=== PATIENT | male | born 1995 | race American Indian/Alaskan Native ===

== ENCOUNTER 2016-08-25 09:02 | Emergency (ER) | payer BC ==
[2016-08-25 09:18] VITALS: BP 124/79
--- NOTE | 2016-08-25 10:37 | Emergency Department Report ---
ED Male HPI - General Chief complaint: Urogenital-Male Stated complaint: BURNING FROM PENIS Time Seen by Provider: 08/25/16 10:36 Source: patient Mode of arrival: Ambulatory Limitations: No Limitations - History of Present Illness Initial comments: Patient complaining of penile discharge and burning when urinating, relates last unprotected sex was 2 days ago. Patient also complains of swollen lump lower abdomen. Denies fever, chills, myalgias, rashes. MD Complaint: dysuria - Related Data Previous Rx's Medication Instructions Recorded Last Taken Type Brompheniramine/Pseudoephed/Dm 5 ml PO Q6H PRN #30 ml 03/16/15 Unknown Rx [Bromfed Dm Cough Syrup] Butalb/Acetaminophen/Caffeine 1 cap PO Q6HR PRN #14 cap 03/16/15 Unknown Rx [Fioricet 50-300-40 mg CAP] Cetirizine HCl [Allergy Relief] 10 mg PO DAILY #30 tablet 03/16/15 Unknown Rx Fluticasone [Flonase] 1 spray NS QDAY #1 bottle 03/16/15 Unknown Rx Butalb/Acetamin/Caff 50-325-40 1 tab PO Q6HR PRN #12 tab 05/10/15 Unknown Rx [Fioricet] Doxycycline [Vibramycin CAP] 100 mg PO Q12HR #28 capsule 12/03/15 Unknown Rx Doxycycline [Vibramycin CAP] 100 mg PO Q12HR #20 capsule 08/25/16 Unknown Rx Allergies Allergy/AdvReac Type Severity Reaction Status Date / Time No Known Allergies Allergy Verified 12/03/15 18:33 ED Review of Systems ROS: Stated complaint: BURNING FROM PENIS Other details as noted in HPI Constitutional: denies: chills, fever Eyes: denies: eye pain, eye discharge, vision change ENT: denies: ear pain, throat pain Respiratory: denies: cough, shortness of breath, wheezing Cardiovascular: denies: chest pain, palpitations Endocrine: no symptoms reported Gastrointestinal: denies: abdominal pain, nausea, diarrhea Genitourinary: dysuria, discharge. denies: urgency, testicular pain, testicular mass Musculoskeletal: denies: back pain, joint swelling, arthralgia Skin: denies: rash, lesions Neurological: denies: headache, weakness, paresthesias Psychiatric: denies: anxiety, depression Hematological/Lymphatic: swollen glands. denies: easy bleeding, easy bruising ED Past Medical Hx - Past Medical History Previous Medical History?: No Additional medical history: allergies - Surgical History Past Surgical History?: No - Social History Smoking Status: Current Some Day Smoker Substance Use Type: None - Medications Home Medications: Home Medications Medication Instructions Recorded Confirmed Last Taken Type Brompheniramine/Pseudoephed/Dm 5 ml PO Q6H PRN #30 ml 03/16/15 Unknown Rx [Bromfed Dm Cough Syrup] Butalb/Acetaminophen/Caffeine 1 cap PO Q6HR PRN #14 cap 03/16/15 Unknown Rx [Fioricet 50-300-40 mg CAP] Cetirizine HCl [Allergy Relief] 10 mg PO DAILY #30 tablet 03/16/15 Unknown Rx Fluticasone [Flonase] 1 spray NS QDAY #1 bottle 03/16/15 Unknown Rx Butalb/Acetamin/Caff 50-325-40 1 tab PO Q6HR PRN #12 tab 05/10/15 Unknown Rx [Fioricet] Doxycycline [Vibramycin CAP] 100 mg PO Q12HR #28 capsule 12/03/15 Unknown Rx Doxycycline [Vibramycin CAP] 100 mg PO Q12HR #20 capsule 08/25/16 Unknown Rx ED Physical Exam - General Limitations: No Limitations General appearance: alert, in no apparent distress - Head Head exam: Present: atraumatic, normocephalic - Eye Eye exam: Present: normal appearance, PERRL, EOMI Pupils: Present: normal accommodation - ENT ENT exam: Present: normal exam, mucous membranes moist - Neck Neck exam: Present: normal inspection - Respiratory Respiratory exam: Present: normal lung sounds bilaterally. Absent: respiratory distress, wheezes, rales, rhonchi, stridor - Cardiovascular Cardiovascular Exam: Present: regular rate. Absent: systolic murmur, diastolic murmur, rubs, gallop - GI/Abdominal GI/Abdominal exam: Present: soft, normal bowel sounds. Absent: distended, tenderness, guarding, rebound, rigid - Rectal Rectal exam: Present: deferred - exam: Present: normal inspection, circumcision. Absent: testicular tenderness, urethral discharge, scrotal swelling, vertical testicular lie External exam: Present: normal external exam, other (right inguinal adenopathy) . Absent: erythema, swelling, lesions, lacerations, ecchymosis, bleeding - Extremities Exam Extremities exam: Present: normal inspection, full ROM. Absent: normal capillary refill, pedal edema - Back Exam Back exam: Present: normal inspection - Neurological Exam Neurological exam: Present: alert, oriented X3 - Psychiatric Psychiatric exam: Present: normal affect, normal mood - Skin Skin exam: Present: warm, dry, intact, normal color. Absent: rash ED Course Vital Signs 08/25/16 09:15 Temperature 98.2 F Pulse Rate 78 Respiratory 16 Rate Blood Pressure 124/79 O2 Sat by Pulse 100 Oximetry - Reevaluation(s) Reevaluation #1: 08/25/16 11:16 Patient denies that I am going to treat for GC, and that we are will test here for GC. Patient advised she needs to go to health department for other STD testing. Patient acknowledged this verbally. Critical care attestation.: If time is entered above; I have spent that time in minutes in the direct care of this critically ill patient, excluding procedure time. ED Disposition Clinical Impression: Dysuria, STD (sexually transmitted disease) Disposition: DISCHARGED TO HOME OR SELFCARE Is pt being admited?: No Condition: Stable Instructions: Sexually Transmitted Diseases (ED), Safe Sex (ED) Prescriptions: Doxycycline [Vibramycin CAP] 100 mg PO Q12HR #20 capsule Referrals: PRIMARY CARE,MD [Primary Care Provider] - 3-5 Days
[2016-08-25] MEDS ORDERED: ROCEPHIN IM ONE (10:58)
[2016-08-25] MEDS ORDERED: ZITHROMAX PO ONE (10:58)
[2016-08-25] MEDS ORDERED: XYLOCAINE 1% MPF 5 mL INFILTRATI ONE (10:58)
[2016-08-25 11:25] LABS: Bacteria,Urine 1+ /HPF (Negative); Bilirubin,Urine NEG (Negative); Blood,Urine NEG (Negative); Ketones,Urine TR mg/dL (Negative); Leukocyte Esterase,Urine MOD (Negative); Mucus,Urine 3+ /HPF; Nitrite,Urine NEG (Negative)
== END 2016-08-25 11:52 | disposition home or self-care (01) ==
LOC: ED 09:02
DX: A64 Unspecified sexually transmitted disease (principal); R30.0 Dysuria; F17.200 Nicotine dependence, unspecified, uncomplicated
CPT/HCPCS: 81001; 87591; 96372; 99283; J0696

== ENCOUNTER 2016-09-08 09:55 | Emergency (ER) | payer BC ==
[2016-09-08 10:28] VITALS: BP 119/79
[2016-09-08 11:14] LABS: Bilirubin,Urine NEG (Negative); Blood,Urine NEG (Negative); Ketones,Urine NEG (Negative); Leukocyte Esterase,Urine SM (Negative); Mucus,Urine 1+ /HPF; Nitrite,Urine NEG (Negative); Protein,Urine <15 mg/dL mg/dL (Negative); Urobilinogen,Urine < 2.0 mg/dL (<2.0)
--- NOTE | 2016-09-08 12:12 | Emergency Department Report ---
ED Male HPI - General Chief complaint: Urogenital-Male Stated complaint: BURNING WHEN URINATING Time Seen by Provider: 09/08/16 12:08 Source: patient Mode of arrival: Ambulatory Limitations: No Limitations - History of Present Illness Initial comments: Patient reports painful urination and a small knot on his right groin area. Denies concerns for STD. Denies nausea , vomiting and diarrhea. Denies abdominal or back pain. Was treated 08/25/2016 for CHL and given doxycycline prescription for Bacteria in urine. He said his son poured out medicine so he did not get to finish. Not a right groin is not painful. He said burning on urination and denies any penile discharge. Denies any scrotal or testicular pain. Denies any fever or chills. MD Complaint: dysuria, other (Knot right groin) Onset/Timin -: week(s) Location: right inguinal region Radiation: none Severity scale (0 -10): 0 dysuria, other (knot to rt groin). denies: discharge, swelling, mass, rash, urinary retention, blood in urine, fever, nausea/vomiting, incontinence - Related Data Sexually active: Yes Previous Rx's Medication Instructions Recorded Last Taken Type Brompheniramine/Pseudoephed/Dm 5 ml PO Q6H PRN #30 ml 03/16/15 Unknown Rx [Bromfed Dm Cough Syrup] Butalb/Acetaminophen/Caffeine 1 cap PO Q6HR PRN #14 cap 03/16/15 Unknown Rx [Fioricet 50-300-40 mg CAP] Cetirizine HCl [Allergy Relief] 10 mg PO DAILY #30 tablet 03/16/15 Unknown Rx Fluticasone [Flonase] 1 spray NS QDAY #1 bottle 03/16/15 Unknown Rx Butalb/Acetamin/Caff 50-325-40 1 tab PO Q6HR PRN #12 tab 05/10/15 Unknown Rx [Fioricet] Doxycycline [Vibramycin CAP] 100 mg PO Q12HR #28 capsule 12/03/15 Unknown Rx Doxycycline [Vibramycin CAP] 100 mg PO Q12HR #20 capsule 08/25/16 Unknown Rx Ciprofloxacin HCl [Ciprofloxacin 500 mg PO Q12H #10 tab 09/08/16 Unknown Rx TAB] Allergies Allergy/AdvReac Type Severity Reaction Status Date / Time No Known Allergies Allergy Verified 12/03/15 18:33 ED Review of Systems ROS: Stated complaint: BURNING WHEN URINATING Other details as noted in HPI Comment: All other systems reviewed and negative Constitutional: denies: chills, fever Eyes: denies: eye pain, eye discharge Respiratory: no symptoms reported Cardiovascular: denies: chest pain, palpitations, edema, syncope Gastrointestinal: denies: abdominal pain, nausea, vomiting Genitourinary: dysuria, other (rt groin knot). denies: urgency, frequency, hematuria, discharge, testicular pain, testicular mass Musculoskeletal: denies: back pain, arthralgia, myalgia Skin: denies: rash Neurological: denies: headache, weakness, numbness, paresthesias, confusion ED Past Medical Hx - Past Medical History Previous Medical History?: No Additional medical history: allergies - Surgical History Past Surgical History?: No - Family History Family history: no significant - Social History Smoking Status: Never Smoker Substance Use Type: Alcohol - Medications Home Medications: Home Medications Medication Instructions Recorded Confirmed Last Taken Type Brompheniramine/Pseudoephed/Dm 5 ml PO Q6H PRN #30 ml 03/16/15 Unknown Rx [Bromfed Dm Cough Syrup] Butalb/Acetaminophen/Caffeine 1 cap PO Q6HR PRN #14 cap 03/16/15 Unknown Rx [Fioricet 50-300-40 mg CAP] Cetirizine HCl [Allergy Relief] 10 mg PO DAILY #30 tablet 03/16/15 Unknown Rx Fluticasone [Flonase] 1 spray NS QDAY #1 bottle 03/16/15 Unknown Rx Butalb/Acetamin/Caff 50-325-40 1 tab PO Q6HR PRN #12 tab 05/10/15 Unknown Rx [Fioricet] Doxycycline [Vibramycin CAP] 100 mg PO Q12HR #28 capsule 12/03/15 Unknown Rx Doxycycline [Vibramycin CAP] 100 mg PO Q12HR #20 capsule 08/25/16 Unknown Rx Ciprofloxacin HCl [Ciprofloxacin 500 mg PO Q12H #10 tab 09/08/16 Unknown Rx TAB] ED Physical Exam - General Limitations: No Limitations General appearance: alert, in no apparent distress - Head Head exam: Present: atraumatic, normocephalic, normal inspection - Eye Eye exam: Present: normal appearance, PERRL, EOMI. Absent: scleral icterus, conjunctival injection Pupils: Present: normal accommodation - ENT ENT exam: Present: normal exam, normal orophraynx - Neck Neck exam: Present: normal inspection, full ROM. Absent: tenderness, meningismus, lymphadenopathy - Respiratory Respiratory exam: Present: normal lung sounds bilaterally. Absent: respiratory distress, chest wall tenderness - Cardiovascular Cardiovascular Exam: Present: normal rhythm, bradycardia (asymptomatic), normal heart sounds - GI/Abdominal GI/Abdominal exam: Present: soft, normal bowel sounds. Absent: distended, tenderness, guarding, rebound, rigid, organomegaly, mass, bruit, hernia - exam: Present: normal inspection. Absent: testicular tenderness, urethral discharge, scrotal swelling External exam: Present: normal external exam, other (positive injury to the area. Inguinal area without any tenderness to palpation.visible). Absent: erythema, swelling, lesions, lacerations, ecchymosis, bleeding - Extremities Exam Extremities exam: Present: normal inspection, full ROM, normal capillary refill. Absent: tenderness, pedal edema, joint swelling, calf tenderness - Back Exam Back exam: Present: normal inspection, full ROM. Absent: tenderness, CVA tenderness (R), CVA tenderness (L), muscle spasm, paraspinal tenderness, vertebral tenderness, rash noted - Neurological Exam Neurological exam: Present: alert, oriented X3, normal gait - Psychiatric Psychiatric exam: Present: normal affect, normal mood - Skin Skin exam: Present: warm, dry, intact, normal color. Absent: rash ED Course Vital Signs 09/08/16 10:26 Temperature 98.7 F Pulse Rate 59 L Respiratory 16 Rate Blood Pressure 119/79 O2 Sat by Pulse 100 Oximetry - Reevaluation(s) Reevaluation #1: 09/08/16 12:47 Patient given Rocephin 1 g IM in emergency room to cover her UTI. He is in ultrasound right groin. ED Medical Decision Making - Lab Data Lab Results 09/08/16 Range/Units Unknown Urine Color Yellow (Yellow) Urine Turbidity Clear (Clear) Urine pH 6.0 (5.0-7.0) Ur Specific [place] 1.023 (1.003-1.030) Urine Protein <15 mg/dl (Negative) mg/dL Urine Glucose (UA) Neg (Negative) mg/dL Urine Ketones Neg (Negative) mg/dL Urine Blood Neg (Negative) Urine Nitrite Neg (Negative) Urine Bilirubin Neg (Negative) Urine Urobilinogen < 2.0 (<2.0) mg/dL Ur Leukocyte Esterase Sm (Negative) Urine WBC (Auto) 8.0 H (0.0-6.0) /HPF Urine RBC (Auto) 2.0 (0.0-6.0) /HPF Urine Mucus 1+ /HPF Urine culture pending - Radiology Data Radiology results: report reviewed Ultrasound of right groin reveal patient with multiple to the right groin. - Medical Decision Making ED course: I informed The patient that he had bacteria in his urine, UTI and Adenitis. He was just treated for STD on 08/25/2016 and he does not have any penile discharge and not concerned for STD at present. I also discussed with him that this ultrasound shows that he has lymph nodes in his right groin. I discussed treatment plan and diagnosis patient is understanding and primary care physician and I referred him to [facility] . I discussed with him that he should call [facility] to have repeat STD testing done as he was treated on August 25, 2016 for gonorrhea and chlamydia. Patient was understanding discharged home with prescription for ciprofloxacin. He was given Rocephin 1 g IM in the emergency room to cover her UTI and cultures are pending. Critical care attestation.: If time is entered above; I have spent that time in minutes in the direct care of this critically ill patient, excluding procedure time. ED Disposition Clinical Impression: Dysuria, Acute cystitis without hematuria, Adenitis, acute Disposition: DC-01 TO HOME OR SELFCARE Is pt being admited?: No Does the pt Need Aspirin: No Condition: Stable Instructions: Adenitis (ED), Dysuria (ED), Urinary Tract Infection in Men (ED) Additional Instructions: Please practice safe sex Neck antibiotic as prescribed Follow-up with outside [facility] for primary care visit and to have repeat STD testing done this evening treated within the last 2 weeks for STD. Prescriptions: Ciprofloxacin HCl [Ciprofloxacin TAB] 500 mg PO Q12H #10 tab Referrals: [facility] [Outside] - 09/09/16 Forms: Work/School Release Form(ED)
[2016-09-08] MEDS ORDERED: ROCEPHIN IM STA (12:22)
[2016-09-08] MEDS ORDERED: XYLOCAINE 1% MPF 5 mL INFILTRATI ONE (12:22)
--- NOTE | 2016-09-08 13:04 | Ultrasound Report ---
ULTRASOUND EXTREMITY NONVASCULAR LIMITED RIGHT HISTORY: Right groin mass. FINDINGS: Targeted grayscale ultrasound was performed in the right groin at the site of the palpable mass. The images demonstrate multiple mildly enlarged lymph nodes in this area. The largest lymph node measures 2.9 x 0.9 x 2.5 cm. This lymph node demonstrates hyperemia on color Doppler interrogation. There is no evidence for necrotic lymph nodes or abscess. IMPRESSION: Probable right groin adenopathy. Consider adenitis. If further evaluation is needed, CT with contrast should provide additional information.
== END 2016-09-08 13:31 | disposition home or self-care (01) ==
LOC: ED 09:55
DX: N30.00 Acute cystitis without hematuria (principal); I88.9 Nonspecific lymphadenitis, unspecified
CPT/HCPCS: 76882; 81001; 87086; 96372; 99284; J0696

== ENCOUNTER 2016-12-08 10:08 | Emergency (ER) | payer BC ==
[2016-12-08 10:15] VITALS: BP 134/81
[2016-12-08 13:00] LABS: Bilirubin,Urine NEG (Negative); Blood,Urine NEG (Negative); Ketones,Urine NEG (Negative); Leukocyte Esterase,Urine NEG (Negative); Mucus,Urine 1+ /HPF; Nitrite,Urine NEG (Negative); Protein,Urine <15 mg/dL mg/dL (Negative); Urobilinogen,Urine < 2.0 mg/dL (<2.0)
--- NOTE | 2016-12-08 13:07 | Emergency Department Report ---
ED Male HPI - General Chief complaint: Urogenital-Male Stated complaint: KNOT ON PRIVATE AREA Time Seen by Provider: 12/08/16 12:35 Source: patient Mode of arrival: Ambulatory Limitations: No Limitations - History of Present Illness Initial comments: This is a 21-year-old male nontoxic, well nourished in appearance, no acute signs of distress presents to the ED complaining of right inguinal lymph node enlargement and penile ulcers 2 weeks. Patient stated 3 months ago he was diagnosed with coronary Chlamydia and have received appropriate treatment as well as urinary urinary tract infection. Based in the past 2 months he has not had any sexual intercourse and is not concerned about gonorrhea chlamydia or any other STD. Patient denies having right groin pain and just stated is just enlarged. Patient denies any penile discharge, testicular pain, testicular swelling, fever, chills, nausea, dysuria, polyuria, back pain, vomiting, chest pain or shortness of breath, abdominal pain. Patient denies any allergies or past medical history. MD Complaint: other (right inguinal lymph node enlargement and penile ulcer) -: Gradual, week(s) (2) Location: penis Radiation: none Severity: mild Severity scale (0 -10): 5 Quality: burning Consistency: constant Improves with: none Worsens with: none denies other symptoms, swelling (right inguinal lymph node). denies: discharge , mass, rash, urinary retention, blood in urine, dysuria, fever, nausea/vomiting , incontinence - Related Data Sexually active: No Previous Rx's Medication Instructions Recorded Last Taken Type Brompheniramine/Pseudoephed/Dm 5 ml PO Q6H PRN #30 ml 03/16/15 Unknown Rx [Bromfed Dm Cough Syrup] Butalb/Acetaminophen/Caffeine 1 cap PO Q6HR PRN #14 cap 03/16/15 Unknown Rx [Fioricet 50-300-40 mg CAP] Cetirizine HCl [Allergy Relief] 10 mg PO DAILY #30 tablet 03/16/15 Unknown Rx Fluticasone [Flonase] 1 spray NS QDAY #1 bottle 03/16/15 Unknown Rx Butalb/Acetamin/Caff 50-325-40 1 tab PO Q6HR PRN #12 tab 05/10/15 Unknown Rx [Fioricet] Doxycycline [Vibramycin CAP] 100 mg PO Q12HR #28 capsule 12/03/15 Unknown Rx Doxycycline [Vibramycin CAP] 100 mg PO Q12HR #20 capsule 08/25/16 Unknown Rx Ciprofloxacin HCl [Ciprofloxacin 500 mg PO Q12H #10 tab 09/08/16 Unknown Rx TAB] Acyclovir [Zovirax Cap] 200 mg PO 5XD 10 Days 12/08/16 Unknown Rx Allergies Allergy/AdvReac Type Severity Reaction Status Date / Time No Known Allergies Allergy Verified 12/03/15 18:33 ED Review of Systems ROS: Stated complaint: KNOT ON PRIVATE AREA Other details as noted in HPI Constitutional: denies: chills, fever Eyes: denies: eye pain, eye discharge, vision change ENT: denies: ear pain, throat pain Respiratory: denies: cough, shortness of breath, wheezing Cardiovascular: denies: chest pain, palpitations Endocrine: no symptoms reported Gastrointestinal: denies: abdominal pain, nausea, diarrhea Genitourinary: denies: urgency, dysuria Musculoskeletal: denies: back pain, joint swelling, arthralgia Skin: denies: rash, lesions Neurological: denies: headache, weakness, paresthesias Psychiatric: denies: anxiety, depression Hematological/Lymphatic: denies: easy bleeding, easy bruising ED Past Medical Hx - Past Medical History Previous Medical History?: No Additional medical history: allergies - Surgical History Past Surgical History?: No - Social History Smoking Status: Never Smoker Substance Use Type: None - Medications Home Medications: Home Medications Medication Instructions Recorded Confirmed Last Taken Type Brompheniramine/Pseudoephed/Dm 5 ml PO Q6H PRN #30 ml 03/16/15 Unknown Rx [Bromfed Dm Cough Syrup] Butalb/Acetaminophen/Caffeine 1 cap PO Q6HR PRN #14 cap 03/16/15 Unknown Rx [Fioricet 50-300-40 mg CAP] Cetirizine HCl [Allergy Relief] 10 mg PO DAILY #30 tablet 03/16/15 Unknown Rx Fluticasone [Flonase] 1 spray NS QDAY #1 bottle 03/16/15 Unknown Rx Butalb/Acetamin/Caff 50-325-40 1 tab PO Q6HR PRN #12 tab 05/10/15 Unknown Rx [Fioricet] Doxycycline [Vibramycin CAP] 100 mg PO Q12HR #28 capsule 12/03/15 Unknown Rx Doxycycline [Vibramycin CAP] 100 mg PO Q12HR #20 capsule 08/25/16 Unknown Rx Ciprofloxacin HCl [Ciprofloxacin 500 mg PO Q12H #10 tab 09/08/16 Unknown Rx TAB] Acyclovir [Zovirax Cap] 200 mg PO 5XD 10 Days 12/08/16 Unknown Rx ED Physical Exam - General Limitations: No Limitations General appearance: alert, in no apparent distress - Head Head exam: Present: atraumatic, normocephalic, normal inspection - Eye Eye exam: Present: normal appearance, PERRL, EOMI. Absent: scleral icterus, conjunctival injection, nystagmus, periorbital swelling, periorbital tenderness Pupils: Present: normal accommodation - ENT ENT exam: Present: normal exam, normal orophraynx, mucous membranes moist, TM's normal bilaterally, normal external ear exam - Neck Neck exam: Present: normal inspection, full ROM. Absent: tenderness, meningismus, lymphadenopathy, thyromegaly - Respiratory Respiratory exam: Present: normal lung sounds bilaterally. Absent: respiratory distress, wheezes, rales, rhonchi, stridor, chest wall tenderness, accessory muscle use, decreased breath sounds, prolonged expiratory - Cardiovascular Cardiovascular Exam: Present: regular rate, normal rhythm, normal heart sounds. Absent: bradycardia, tachycardia, irregular rhythm, systolic murmur, diastolic murmur, rubs, gallop - GI/Abdominal GI/Abdominal exam: Present: soft, normal bowel sounds. Absent: distended, tenderness, guarding, rebound, rigid, diminished bowel sounds - Rectal Rectal exam: Present: deferred - exam: Present: normal inspection. Absent: testicular tenderness, urethral discharge, scrotal swelling, vertical testicular lie, circumcision External exam: Present: normal external exam, other (right inguinal lymphadenopathy. Front tip of penile with ulcer and crusting. ). Absent: erythema, swelling, lesions, lacerations, ecchymosis, bleeding - Extremities Exam Extremities exam: Present: normal inspection, full ROM, normal capillary refill. Absent: tenderness, pedal edema, joint swelling, calf tenderness - Back Exam Back exam: Present: normal inspection, full ROM. Absent: tenderness, CVA tenderness (R), CVA tenderness (L), muscle spasm, paraspinal tenderness, vertebral tenderness, rash noted - Neurological Exam Neurological exam: Present: alert, oriented X3, CN II-XII intact, normal gait, reflexes normal - Psychiatric Psychiatric exam: Present: normal affect, normal mood - Skin Skin exam: Present: warm, dry, intact, normal color. Absent: rash ED Course Vital Signs 12/08/16 10:12 Temperature 98.1 F Pulse Rate 71 Respiratory 16 Rate Blood Pressure 134/81 O2 Sat by Pulse 100 Oximetry - Reevaluation(s) Reevaluation #1: 12/08/16 13:10 Patient is speaking in full sentences with no signs of distress noted. ED Medical Decision Making - Medical Decision Making This is a 21-year-old male that presents with gentle herpes. Patient was examined by myself and patient is stable. Patient denies any new sexual intercourse and that has not concerned about gonorrhea chlamydia. Upon examination there is a right inguinal lymph node enlargement associated with ulcerative penile tip. Patient did receive a ultrasound in September 2016 with a positive lymph node enlargement and no other abnormalities. Patient stated he was treated for gonorrhea chlamydia and was discharged with antibiotics as stated lymph node enlargement has went away and just reoccurred weeks ago. Patient denies any testicular pain or any abnormalities. Patient will be treated with Acyclovir. Patient was referred to follow up with primary care doctor in 3-5 days. At time time of discharge, the patient does not seem toxic or ill in appearance. No acute signs of distress noted. Patient agrees to discharge treatment plan of care. No further questions noted by the patient. Critical care attestation.: If time is entered above; I have spent that time in minutes in the direct care of this critically ill patient, excluding procedure time. ED Disposition Clinical Impression: Herpes, genital Qualifiers: Herpes simplex infection site: unspecified Qualified Code(s): A60.00 - Herpesviral infection of urogenital system, unspecified Disposition: DC-01 TO HOME OR SELFCARE Is pt being admited?: No Does the pt Need Aspirin: No Condition: Stable Instructions: Genital Herpes Simplex (ED), Acyclovir (By mouth) Additional Instructions: Follow-up with the primary care doctor 3-5 days or if symptoms worsen or continue results of emergency room as was possible. Prescriptions: Acyclovir [Zovirax Cap] 200 mg PO 5XD 10 Days Referrals: NAZ FLOOD MD [Primary Care Provider] - 3-5 Days ISHAAN DEL CID MD [Staff Physician] - 3-5 Days [facility] [Outside] - 3-5 Days [facility] [place] [Outside] - 3-5 Days Forms: Work/School Release Form(ED)
== END 2016-12-08 13:39 | disposition home or self-care (01) ==
LOC: ED 10:08
DX: A60.01 Herpesviral infection of penis (principal)
CPT/HCPCS: 81001; 99282

== ENCOUNTER 2017-01-18 11:17 | Emergency (ER) | payer BC ==
[2017-01-18 11:24] VITALS: BP 120/81
[2017-01-18] MEDS ORDERED: BICILLIN L-A IM ONE (15:57)
--- NOTE | 2017-01-18 16:02 | Emergency Department Report ---
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 MD Complaint: groin pain -: Gradual, days(s) Location: penis, right inguinal region Radiation: none Severity: mild Quality: aching Improves with: none Worsens with: none denies other symptoms - Related Data Previous Rx's Medication Instructions Recorded Last Taken Type Brompheniramine/Pseudoephed/Dm 5 ml PO Q6H PRN #30 ml 03/16/15 Unknown Rx [Bromfed Dm Cough Syrup] Butalb/Acetaminophen/Caffeine 1 cap PO Q6HR PRN #14 cap 03/16/15 Unknown Rx [Fioricet 50-300-40 mg CAP] Cetirizine HCl [Allergy Relief] 10 mg PO DAILY #30 tablet 03/16/15 Unknown Rx Fluticasone [Flonase] 1 spray NS QDAY #1 bottle 03/16/15 Unknown Rx Butalb/Acetamin/Caff 50-325-40 1 tab PO Q6HR PRN #12 tab 05/10/15 Unknown Rx [Fioricet] Doxycycline [Vibramycin CAP] 100 mg PO Q12HR #20 capsule 08/25/16 Unknown Rx Ciprofloxacin HCl [Ciprofloxacin 500 mg PO Q12H #10 tab 09/08/16 Unknown Rx TAB] Acyclovir [Zovirax Cap] 200 mg PO 5XD 10 Days 12/08/16 Unknown Rx Doxycycline [Vibramycin CAP] 100 mg PO Q12HR #28 capsule 01/18/17 Unknown Rx Allergies Allergy/AdvReac Type Severity Reaction Status Date / Time No Known Allergies Allergy Verified 12/03/15 18:33 ED Review of Systems ROS: Stated complaint: KNOT ON PRIVATE PART Other details as noted in HPI Comment: All other systems reviewed and negative Constitutional: denies: chills, fever Eyes: denies: eye pain, eye discharge, vision change ENT: denies: ear pain, throat pain Respiratory: denies: cough, shortness of breath, wheezing Cardiovascular: denies: chest pain, palpitations Endocrine: no symptoms reported Gastrointestinal: denies: abdominal pain, nausea, diarrhea Genitourinary: as per HPI. denies: urgency, dysuria Musculoskeletal: denies: back pain, joint swelling, arthralgia Skin: denies: rash, lesions Neurological: denies: headache, weakness, paresthesias Psychiatric: denies: anxiety, depression Hematological/Lymphatic: denies: easy bleeding, easy bruising ED Past Medical Hx - Past Medical History Previous Medical History?: Yes Additional medical history: seasonal allergies - Social History Smoking Status: Current Every Day Smoker Substance Use Type: Marijuana - Medications Home Medications: Home Medications Medication Instructions Recorded Confirmed Last Taken Type Brompheniramine/Pseudoephed/Dm 5 ml PO Q6H PRN #30 ml 03/16/15 Unknown Rx [Bromfed Dm Cough Syrup] Butalb/Acetaminophen/Caffeine 1 cap PO Q6HR PRN #14 cap 03/16/15 Unknown Rx [Fioricet 50-300-40 mg CAP] Cetirizine HCl [Allergy Relief] 10 mg PO DAILY #30 tablet 03/16/15 Unknown Rx Fluticasone [Flonase] 1 spray NS QDAY #1 bottle 03/16/15 Unknown Rx Butalb/Acetamin/Caff 50-325-40 1 tab PO Q6HR PRN #12 tab 05/10/15 Unknown Rx [Fioricet] Doxycycline [Vibramycin CAP] 100 mg PO Q12HR #20 capsule 08/25/16 Unknown Rx Ciprofloxacin HCl [Ciprofloxacin 500 mg PO Q12H #10 tab 09/08/16 Unknown Rx TAB] Acyclovir [Zovirax Cap] 200 mg PO 5XD 10 Days 12/08/16 Unknown Rx Doxycycline [Vibramycin CAP] 100 mg PO Q12HR #28 capsule 01/18/17 Unknown Rx ED Physical Exam - General Limitations: No Limitations General appearance: alert, in no apparent distress - Head Head exam: Present: atraumatic, normocephalic - Eye Eye exam: Present: normal appearance - ENT ENT exam: Present: mucous membranes moist - Neck Neck exam: Present: normal inspection - Respiratory Respiratory exam: Present: normal lung sounds bilaterally. Absent: respiratory distress - Cardiovascular Cardiovascular Exam: Present: regular rate, normal rhythm. Absent: systolic murmur, diastolic murmur, rubs, gallop - GI/Abdominal GI/Abdominal exam: Present: soft, normal bowel sounds - Rectal Rectal exam: Present: deferred - exam: Present: other (There is a 2.5 cm enlarged freely mobile lymph node to R inguinal area. There is a painless lesion to the distal shaft of the penis. ) . Absent: testicular tenderness, urethral discharge, scrotal swelling - Extremities Exam Extremities exam: Present: normal inspection - Back Exam Back exam: Present: normal inspection - Neurological Exam Neurological exam: Present: alert, oriented X3 - Psychiatric Psychiatric exam: Present: normal affect, normal mood - Skin Skin exam: Present: warm, dry, intact, normal color. Absent: rash ED Course Vital Signs 01/18/17 11:21 Temperature 98 F Pulse Rate 79 Respiratory 20 Rate Blood Pressure 120/81 O2 Sat by Pulse 99 Oximetry - Reevaluation(s) Reevaluation #1: 01/18/17 16:02 Pt is in NAD and stable for d/c. ED Medical Decision Making - Medical Decision Making Will order RPR and give PCN x 1. Will also cover with doxycycline. Advise close follow up with PCP or health department. - Differential Diagnosis syphilis, herpes Critical care attestation.: If time is entered above; I have spent that time in minutes in the direct care of this critically ill patient, excluding procedure time. ED Disposition Clinical Impression: Penile lesion, Lymphadenopathy Disposition: - TO HOME OR SELFCARE Is pt being admited?: No Condition: Good Instructions: Syphilis (ED), Lymphadenopathy (ED) Prescriptions: Doxycycline [Vibramycin CAP] 100 mg PO Q12HR #28 capsule Referrals: PRIMARY CAREMD [Primary Care Provider] - 3-5 Days JESSICA CABA MD [Staff Physician] - 3-5 Days Time of Disposition: 16:04
[2017-01-19 12:53] LABS: Rapid Plasma Reagin Reactive (Nonreactive)
== END 2017-01-18 16:28 | disposition home or self-care (01) ==
LOC: ED 11:17
DX: R59.1 Generalized enlarged lymph nodes (principal); L98.9 Disorder of the skin and subcutaneous tissue, unspecified; F17.210 Nicotine dependence, cigarettes, uncomplicated; F12.10 Cannabis abuse, uncomplicated
CPT/HCPCS: 36415; 86592; 86593; 96372; 99283; J0561; 86780

== ENCOUNTER 2017-09-25 04:39 | Emergency (ER) | payer BC ==
[2017-09-25 05:42] VITALS: BP 133/80
[2017-09-25 06:52] LABS: Bacteria,Urine 3+ /HPF (Negative); Bilirubin,Urine NEG (Negative); Blood,Urine SM (Negative); Color,Urine Yellow (Yellow); Mucus,Urine 3+ /HPF
[2017-09-25 06:53] LABS: WBC,Urine > 182.0 /HPF (0.0-6.0)
[2017-09-25] MEDS ORDERED: FLAGYL PO ONE (10:04)
[2017-09-25] MEDS ORDERED: ZITHROMAX PO ONE (10:04)
[2017-09-25] MEDS ORDERED: ROCEPHIN IM ONE (10:04)
[2017-09-25] MEDS ORDERED: XYLOCAINE 1% MPF 5 mL INFILTRATI ONE (10:04)
--- NOTE | 2017-09-25 10:04 | Emergency Department Report ---
ED Male HPI - General Chief complaint: Urogenital-Male Stated complaint: DISCHARGE FROM PENIS PAINFUL Time Seen by Provider: 09/25/17 09:46 Source: patient Mode of arrival: Ambulatory Limitations: No Limitations - History of Present Illness MD Complaint: penile discharge, dysuria -: days(s) (2) Location: penis Radiation: none Severity: mild Severity scale (0 -10): 3 Quality: burning Consistency: constant Improves with: none Worsens with: urination new sexual partner mass (right sided inginal swelling), dysuria. denies: swelling, rash, urinary retention, blood in urine, fever, nausea/vomiting, incontinence - Related Data Previous Rx's Medication Instructions Recorded Last Taken Type Brompheniramine/Pseudoephed/Dm 5 ml PO Q6H PRN #30 ml 03/16/15 Unknown Rx [Bromfed Dm Cough Syrup] Butalb/Acetaminophen/Caffeine 1 cap PO Q6HR PRN #14 cap 03/16/15 Unknown Rx [Fioricet 50-300-40 mg CAP] Cetirizine HCl [Allergy Relief] 10 mg PO DAILY #30 tablet 03/16/15 Unknown Rx Fluticasone [Flonase] 1 spray NS QDAY #1 bottle 03/16/15 Unknown Rx Butalb/Acetamin/Caff 50-325-40 1 tab PO Q6HR PRN #12 tab 05/10/15 Unknown Rx [Fioricet] Doxycycline [Vibramycin CAP] 100 mg PO Q12HR #20 capsule 08/25/16 Unknown Rx Ciprofloxacin HCl [Ciprofloxacin 500 mg PO Q12H #10 tab 09/08/16 Unknown Rx TAB] Acyclovir [Zovirax Cap] 200 mg PO 5XD 10 Days cap 12/08/16 Unknown Rx Doxycycline [Vibramycin CAP] 100 mg PO Q12HR #28 capsule 01/18/17 Unknown Rx Allergies Allergy/AdvReac Type Severity Reaction Status Date / Time No Known Allergies Allergy Verified 12/03/15 18:33 ED Review of Systems ROS: Stated complaint: DISCHARGE FROM PENIS PAINFUL Other details as noted in HPI Comment: All other systems reviewed and negative ED Past Medical Hx - Past Medical History Additional medical history: seasonal allergies - Surgical History Past Surgical History?: No - Social History Smoking Status: Never Smoker Substance Use Type: None - Medications Home Medications: Home Medications Medication Instructions Recorded Confirmed Last Taken Type Brompheniramine/Pseudoephed/Dm 5 ml PO Q6H PRN #30 ml 03/16/15 Unknown Rx [Bromfed Dm Cough Syrup] Butalb/Acetaminophen/Caffeine 1 cap PO Q6HR PRN #14 cap 03/16/15 Unknown Rx [Fioricet 50-300-40 mg CAP] Cetirizine HCl [Allergy Relief] 10 mg PO DAILY #30 tablet 03/16/15 Unknown Rx Fluticasone [Flonase] 1 spray NS QDAY #1 bottle 03/16/15 Unknown Rx Butalb/Acetamin/Caff 50-325-40 1 tab PO Q6HR PRN #12 tab 05/10/15 Unknown Rx [Fioricet] Doxycycline [Vibramycin CAP] 100 mg PO Q12HR #20 capsule 08/25/16 Unknown Rx Ciprofloxacin HCl [Ciprofloxacin 500 mg PO Q12H #10 tab 09/08/16 Unknown Rx TAB] Acyclovir [Zovirax Cap] 200 mg PO 5XD 10 Days cap 12/08/16 Unknown Rx Doxycycline [Vibramycin CAP] 100 mg PO Q12HR #28 capsule 01/18/17 Unknown Rx ED Physical Exam - General Limitations: No Limitations General appearance: alert, in no apparent distress - Head Head exam: Present: atraumatic, normocephalic - Eye Eye exam: Present: normal appearance - ENT ENT exam: Present: mucous membranes moist - Neck Neck exam: Present: normal inspection - Respiratory Respiratory exam: Present: normal lung sounds bilaterally. Absent: respiratory distress - Cardiovascular Cardiovascular Exam: Present: regular rate, normal rhythm. Absent: systolic murmur, diastolic murmur, rubs, gallop - GI/Abdominal GI/Abdominal exam: Present: soft, normal bowel sounds - Rectal Rectal exam: Present: deferred - Extremities Exam Extremities exam: Present: normal inspection - Back Exam Back exam: Present: normal inspection - Neurological Exam Neurological exam: Present: alert, oriented X3 - Psychiatric Psychiatric exam: Present: normal affect, normal mood - Skin Skin exam: Present: warm, dry, intact, normal color. Absent: rash ED Course Vital Signs 09/25/17 05:38 Temperature 97.9 F Pulse Rate 61 Blood Pressure 133/80 O2 Sat by Pulse 99 Oximetry ED Medical Decision Making - Medical Decision Making Patient was screened and has a nonmedical emergency however he does have insurance with no code patient be treated here patient also was given referrals to [facility] for care for issues like this in the future. Critical care attestation.: If time is entered above; I have spent that time in minutes in the direct care of this critically ill patient, excluding procedure time. ED Disposition Clinical Impression: Urethritis Disposition: DC-01 TO HOME OR SELFCARE Is pt being admited?: No Does the pt Need Aspirin: No Condition: Stable Instructions: Nonspecific Urethritis in Men (ED) Referrals: PRIMARY CARE, [Primary Care Provider] - 3-5 Days Forms: STI Treatment and Prevention
== END 2017-09-25 11:18 | disposition home or self-care (01) ==
LOC: ED 04:39
DX: N34.2 Other urethritis (principal); J30.2 Other seasonal allergic rhinitis; Z79.899 Other long term (current) drug therapy
CPT/HCPCS: 81001; 87591; 96372; 99283; J0696

== ENCOUNTER 2018-10-29 21:28 | Emergency (ER) | payer BC ==
--- NOTE | 2018-10-29 21:33 | Emergency Department Report ---
Blank Doc - Documentation Documentation: This is a 23-year-old male that presents with dysuria and penile discharge. This initial assessment/diagnostic orders/clinical plan/treatment(s) is/are subject to change based on patient's health status, clinical progression and re- assessment by fellow clinical providers in the ED. Further treatment and workup at subsequent clinical providers discretion. Patient/guardians urged not to elope from the ED as their condition may be serious if not clinically assessed and managed. Initial orders include: 1- Patient sent to [facility] for further evaluation and treatment 2- UA/GC
--- NOTE | 2018-10-29 21:58 | Emergency Department Report ---
ED Male HPI - General Chief complaint: Urogenital-Male Stated complaint: DISCHARGE FROM PENIS Time Seen by Provider: 10/29/18 21:32 Source: patient Mode of arrival: Ambulatory Limitations: No Limitations - History of Present Illness Initial comments: This is a 23-year-old male that presents with dysuria and penile discharge. advised partner advised him to seek tx for gonorrhea MD Complaint: penile discharge (yellow thick ), dysuria Onset/Timin -: days(s) Location: penis Radiation: none Severity: moderate Severity scale (0 -10): 5 Quality: burning Consistency: constant Improves with: none Worsens with: urination new sexual partner discharge, dysuria - Related Data Sexually active: Yes Previous Rx's Medication Instructions Recorded Last Taken Type Brompheniramine/Pseudoephed/Dm 5 ml PO Q6H PRN #30 ml 03/16/15 Unknown Rx [Bromfed Dm Cough Syrup] Butalb/Acetaminophen/Caffeine 1 cap PO Q6HR PRN #14 cap 03/16/15 Unknown Rx [Fioricet 50-300-40 mg CAP] Cetirizine HCl [Allergy Relief] 10 mg PO DAILY #30 tablet 03/16/15 Unknown Rx Fluticasone [Flonase] 1 spray NS QDAY #1 bottle 03/16/15 Unknown Rx Butalb/Acetamin/Caff 50-325-40 1 tab PO Q6HR PRN #12 tab 05/10/15 Unknown Rx [Fioricet] DOXYCYCLINE Hyclate [Vibramycin 100 mg PO Q12HR #20 capsule 08/25/16 Unknown Rx CAP] Ciprofloxacin HCl [Ciprofloxacin 500 mg PO Q12H #10 tab 09/08/16 Unknown Rx TAB] Acyclovir [Zovirax Cap] 200 mg PO 5XD 10 Days cap 12/08/16 Unknown Rx DOXYCYCLINE Hyclate [Vibramycin 100 mg PO Q12HR #28 capsule 01/18/17 Unknown Rx CAP] Doxycycline Monohydrate 100 mg PO BID 10 Days #20 capsule 10/29/18 Unknown Rx Allergies Allergy/AdvReac Type Severity Reaction Status Date / Time No Known Allergies Allergy Verified 12/03/15 18:33 ED Review of Systems ROS: Stated complaint: DISCHARGE FROM PENIS Other details as noted in HPI Constitutional: denies: chills, fever Eyes: denies: eye pain, eye discharge, vision change ENT: denies: ear pain, throat pain Respiratory: denies: cough, shortness of breath, wheezing Cardiovascular: denies: chest pain, palpitations Endocrine: no symptoms reported Gastrointestinal: denies: abdominal pain, nausea, vomiting, diarrhea Genitourinary: urgency, dysuria, frequency, discharge. denies: hematuria, testicular pain, testicular mass Musculoskeletal: denies: back pain, joint swelling, arthralgia Skin: denies: rash, lesions Neurological: denies: headache, weakness, paresthesias Psychiatric: denies: anxiety, depression Hematological/Lymphatic: denies: easy bleeding, easy bruising ED Past Medical Hx - Past Medical History Additional medical history: seasonal allergies - Social History Smoking Status: Never Smoker Substance Use Type: None - Medications Home Medications: Home Medications Medication Instructions Recorded Confirmed Last Taken Type Brompheniramine/Pseudoephed/Dm 5 ml PO Q6H PRN #30 ml 03/16/15 Unknown Rx [Bromfed Dm Cough Syrup] Butalb/Acetaminophen/Caffeine 1 cap PO Q6HR PRN #14 cap 03/16/15 Unknown Rx [Fioricet 50-300-40 mg CAP] Cetirizine HCl [Allergy Relief] 10 mg PO DAILY #30 tablet 03/16/15 Unknown Rx Fluticasone [Flonase] 1 spray NS QDAY #1 bottle 03/16/15 Unknown Rx Butalb/Acetamin/Caff 50-325-40 1 tab PO Q6HR PRN #12 tab 05/10/15 Unknown Rx [Fioricet] DOXYCYCLINE Hyclate [Vibramycin 100 mg PO Q12HR #20 capsule 08/25/16 Unknown Rx CAP] Ciprofloxacin HCl [Ciprofloxacin 500 mg PO Q12H #10 tab 09/08/16 Unknown Rx TAB] Acyclovir [Zovirax Cap] 200 mg PO 5XD 10 Days cap 12/08/16 Unknown Rx DOXYCYCLINE Hyclate [Vibramycin 100 mg PO Q12HR #28 capsule 01/18/17 Unknown Rx CAP] Doxycycline Monohydrate 100 mg PO BID 10 Days #20 capsule 10/29/18 Unknown Rx ED Physical Exam - General Limitations: No Limitations General appearance: alert, in no apparent distress - Head Head exam: Present: atraumatic, normocephalic - Eye Eye exam: Present: normal appearance, PERRL, EOMI Pupils: Present: normal accommodation - ENT ENT exam: Present: mucous membranes moist - Neck Neck exam: Present: normal inspection - Respiratory Respiratory exam: Present: normal lung sounds bilaterally. Absent: respiratory distress - Cardiovascular Cardiovascular Exam: Present: regular rate, normal rhythm, normal heart sounds. Absent: systolic murmur, diastolic murmur, rubs, gallop - GI/Abdominal GI/Abdominal exam: Present: soft, normal bowel sounds. Absent: distended, tenderness, bruit, hernia - Rectal Rectal exam: Present: deferred - Extremities Exam Extremities exam: Present: normal inspection, full ROM, normal capillary refill - Back Exam Back exam: Present: normal inspection, full ROM. Absent: tenderness, CVA tenderness (R), CVA tenderness (L), muscle spasm, paraspinal tenderness, rash noted - Neurological Exam Neurological exam: Present: alert, oriented X3, CN II-XII intact, normal gait - Psychiatric Psychiatric exam: Present: normal affect, normal mood - Skin Skin exam: Present: warm, dry, intact, normal color. Absent: rash ED Medical Decision Making - Medical Decision Making this is an sti will tx for same pt will follow up with health department for HIV and HSV screening. Critical care attestation.: If time is entered above; I have spent that time in minutes in the direct care of this critically ill patient, excluding procedure time. ED Disposition Clinical Impression: STI (sexually transmitted infection) Disposition: TO HOME OR SELFCARE Is pt being admited?: No Does the pt Need Aspirin: No Condition: Stable Instructions: Sexually Transmitted Diseases (ED) Prescriptions: Doxycycline Monohydrate 100 mg PO BID 10 Days #20 capsule Referrals: [facility] [Outside] - 3-5 Days Forms: Work/School Release Form(ED) Time of Disposition: 22:04
[2018-10-29] MEDS ORDERED: ROCEPHIN IM ONE (21:59)
[2018-10-29] MEDS ORDERED: ZITHROMAX PO ONE (21:59)
[2018-10-29] MEDS ORDERED: XYLOCAINE 1% MPF 5 mL INFILTRATI ONE (21:59)
== END 2018-10-29 22:36 | disposition home or self-care (01) ==
LOC: ED 21:28
DX: A64 Unspecified sexually transmitted disease (principal); Z79.899 Other long term (current) drug therapy
CPT/HCPCS: 96372; 99282; J0696

== ENCOUNTER 2019-03-12 16:50 | Emergency (ER) | payer BC ==
[2019-03-12 17:56] VITALS: BP 126/75
--- NOTE | 2019-03-12 17:58 | Emergency Department Report ---
Chief Complaint: Urogenital-Male Stated Complaint: GENTIALS DISCHARGE Time Seen by Provider: 03/12/19 17:53 - HPI History of Present Illness: This is a 24 y.o. M. that presents to the ER with penile discharge that started today. Patient states he noticed it while at work. Denies testicular pain, or swelling. Patient denies any urinary symptoms. Patient denies any fever, chills, headache, nausea, vomiting, chest pain or shortness of breathe. denies any other symptoms or complaints. Denies any allergies or PMH. - ROS Review of Systems: STD screening, penile discharge - Exam Vital Signs: Vital Signs 03/12/19 17:54 Temperature 97.9 F Pulse Rate 68 Respiratory 18 Rate Blood Pressure 126/75 O2 Sat by Pulse 99 Oximetry Physical Exam: Abdomen: non TTP, normal BS x 4 quadrants MSE screening note: Focused history and physical exam performed. Due to findings the following was ordered: ED Medical Decision Making - Medical Decision Making This is a 24-year-old male that presents with nonmedical emergency complaint. Patient is just requested for a STD test. Reports penile discharge. Denies pelvic pain, afebrile, non TTP of abdomen. Patient was approached by registration for insurance or copay but patient refused. I gave patient many different referrals to follow-up with STD concerns. Patient was instructed to Follow-up with a primary care doctor in 3-5 days or if symptoms worsen and continue return to emergency room as soon as possible. At time of discharge, the patient does not seem toxic or ill in appearance. No acute signs of distress noted. Patient agrees to discharge treatment plan of care. No further questions noted by the patient. ED Disposition for MSE Disposition: MED SCREENING EXAM-LEFT Condition: Stable Instructions: Sexually Transmitted Diseases (ED), Safe Sex (ED) Additional Instructions: Follow up with the health department or primary care doctor from the referrals provided for STD screening and management. Referrals: [facility] [place] [facility] [place] - 3-5 Days [facility] [Outside] - 3-5 Days CORY MONGE MD [Staff Physician] - 3-5 Days [facility] [Outside] - 3-5 Days Time of Disposition: 18:28
== END 2019-03-12 18:37 | disposition left against medical advice (07) ==
LOC: ED 16:50
DX: R36.9 Urethral discharge, unspecified (principal)
CPT/HCPCS: 99281